=== PATIENT | male | born 1985 | race Caucasian/White ===

== ENCOUNTER 2019-07-11 15:43 | Inpatient (IN) ==
[2019-07-11] MEDS ORDERED: ROBAXIN PO PRN (17:26)
[2019-07-11] MEDS ORDERED: DULCOLAX PR PRN (17:26)
[2019-07-11] MEDS ORDERED: IMODIUM PO PRN (17:26)
[2019-07-11] MEDS ORDERED: MOTRIN PO PRN (17:26)
[2019-07-11] MEDS ORDERED: BENTYL PO PRN (17:26)
[2019-07-11] MEDS ORDERED: D5W 1,000 ML IV PRN (17:26)
[2019-07-11] MEDS ORDERED: LIBRIUM PO PRN (17:26)
[2019-07-11] MEDS ORDERED: PHENOBARBITAL IV PRN (17:26)
[2019-07-11] MEDS ORDERED: SINEMET 25/100 PO PRN (17:26)
[2019-07-11] MEDS ORDERED: MAALOX PLUS LIQUID PO PRN (17:26)
[2019-07-11] MEDS ORDERED: TUBERSOL ID ONE (17:26)
[2019-07-11] MEDS ORDERED: ZOFRAN ODT PO PRN (17:26)
[2019-07-11] MEDS ORDERED: ATARAX PO PRN (17:26)
[2019-07-11] MEDS ORDERED: SENOKOT PO PRN (17:26)
[2019-07-11] MEDS ORDERED: NICODERM PATCH TD PRN (17:26)
[2019-07-11] MEDS ORDERED: TYLENOL PO PRN (17:26)
[2019-07-11] MEDS ORDERED: ZOFRAN IV PRN (17:26)
[2019-07-11] MEDS ORDERED: DESYREL PO PRN (17:26)
[2019-07-11] MEDS ORDERED: SEROQUEL PO PRN (17:26)
[2019-07-11 18:10] LABS: HEMATOCRIT 39.7 % (42.0-52.0); HEMOGLOBIN 13.4 g/dL (14.0-18.0); MCH 28.3 PG (27-31); MCHC 33.8 g/dL (33-37); MCV 83.9 FL (81-99); MPV 9.4 FL (7.4-10.4); RBC 4.73 XMIL (4.7-6.1); WBC 7.98 X1000 (4.8-10.8)
[2019-07-11 18:22] LABS: URINE SOURCE CLEAN CATCH
[2019-07-11 18:24] LABS: INR 0.95; PROTIME 13.2 Seconds (11.0-16.0)
[2019-07-11] MEDS: LIBRIUM PO SCH (18:38)
[2019-07-11 18:39] LABS: UR AMPHETAMINES QUAL PRESUMPTIVE POSITIVE (NONE DETECT); UR BARBITUATES QUAL NONE DETECTED (NONE DETECT); UR BENZODIAZEPIN QUAL PRESUMPTIVE POSITIVE (NONE DETECT); UR CANNABINOIDS QUAL NONE DETECTED (NONE DETECT); UR COCAINE QUAL NONE DETECTED (NONE DETECT); UR METHADONE QUAL NONE DETECTED (NONE DETECT); UR METHAMPHETAMINE QUAL PRESUMPTIVE POSITIVE (NONE DETECT); UR OPIATES QUAL PRESUMPTIVE POSITIVE (NONE DETECT); UR OXYCODONE QUAL NONE DETECTED (NONE DETECT); UR PCP QUAL NONE DETECTED (NONE DETECT); UR PROPOXYPHENE QUAL NONE DETECTED (NONE DETECT); UR TCA QUAL NONE DETECTED (NONE DETECT)
[2019-07-11 18:40] LABS: BILIRUBIN URINE NEGATIVE (NEGATIVE); BLOOD URINE NEGATIVE (NEGATIVE); CLARITY SL. CLOUDY (CLEAR); COLOR YELLOW; GLUCOSE URINE NEGATIVE (NEGATIVE); KETONE URINE NEGATIVE (NEGATIVE); LEUKOCYTES URINE TRACE (NEGATIVE); NITRITE URINE NEGATIVE (NEGATIVE); PROTEIN URINE TRACE mg/dL (NEGATIVE); SP GRAVITY URINE 1.015; UROBILINOGEN URINE NORMAL
[2019-07-11 18:44] LABS: URINE BACTERIA 1+ /HFP; URINE CAST NONE SEEN /LPF; URINE CRYSTAL NONE SEEN /HPF; URINE EPITHELIAL CELLS <10 /HPF (<10); URINE WBC <10 /HPF (<10); URINE YEAST NONE SEEN /HPF
[2019-07-11 18:45] LABS: AMYLASE 81 U/L (20-200); LIPASE 24 U/L (13-60)
[2019-07-11 18:47] LABS: AGAP 10; ALBUMIN 4.4 g/dL (3.5-5.0); ALKALINE PHOSPHATASE 72 U/L (32-122); BUN 8 mg/dL (8-22); CALCIUM 8.6 mg/dL (8.8-10.2); CHLORIDE 102 mmol/L (98-107); COSMO 282; CREATININE 0.8 mg/dL (0.7-1.2); ESTIMATED GFR > 60; GLUCOSE 133 mg/dL (70-104); GOT 13 U/L (10-34); GPT 9 U/L (10-44); SODIUM 141 mmol/L (136-145); TCO2 29 mmol/L (25-35); TOTAL PROTEIN 7.4 g/dL (6.3-8.3)
[2019-07-12] MEDS: LIBRIUM PO SCH ×3 (00:10→12:22)
[2019-07-12] MEDS ORDERED: PROTONIX PO SCH (07:00)
[2019-07-12] MEDS ORDERED: VITAMIN B-1 PO SCH (09:00)
[2019-07-12] MEDS ORDERED: FOLIC ACID PO SCH (09:00)
[2019-07-12] MEDS ORDERED: THERA M PLUS PO SCH (09:00)
[2019-07-12 13:41] VITALS: BP 97/58
--- NOTE | 2019-07-13 06:41 | PROGRESS NOTE ---
DATE: 07/12/2019 SUBJECTIVE: Patient notes that he is feeling okay, still having some withdrawal symptoms, but overall is improving. Denies any fevers or chills. PHYSICAL EXAMINATION: Vital Signs: Reviewed, stable. HEENT: Normocephalic. Neck: Supple. Cardiovascular: Regular rate. Chest: Clear. ASSESSMENT: 1. Nausea, vomiting. 2. Abdominal pain. 3. Paresthesias. 4. Opiate abuse withdrawal and stabilization. PLAN: Will continue patient in the hospital. Continue Librium taper and consider Vivitrol injection on discharge. cc: Jeff Mendes MD MTDD
--- NOTE | 2019-07-15 02:22 | DISCHARGE SUMMARY ---
ADMISSION DATE: 07/11/2019 DISCHARGE DATE: 07/12/2019 DISCHARGE DIAGNOSES: 1. Patient left against medical advice. 2. Nausea, vomiting. 3. Abdominal pain. 4. Myalgias. 5. Paresthesias. 6. Sweating. 7. Opiate abuse, withdrawal, and stabilization. CONSULTATIONS: None. PROCEDURES: None. BRIEF HOSPITAL COURSE: Patient is a 33-year-old male who presented to [facility] program secondary to nausea, vomiting, abdominal pain, paresthesias. He states he has been abusing opiates. Notes that he has been on Suboxone for quite some time. Unfortunately, he was not getting it from a clinic. Apparently, his at the time, was going to a Suboxone clinic and they were simply sharing his prescription. The patient on admission noted that he was having nausea, vomiting, tremors, myalgias, sweating, was unable to keep anything down. He states that he wants off everything. We admitted him to the hospital, placed him on Librium taper, which he appeared to be tolerating very well. In fact, on the day that he left AMA, that morning he had no complaints, states he was feeling okay. Noted that his symptoms had improved. DISPOSITION: No discharge planning or disposition was able to be performed, as patient left AMA without the staff actually knowing it until he was seen in the parking lot. When asked, the patient states he was not going to allow the nurses to commit him, and that he was not staying in the hospital any longer. cc: Jeff Mendes MD
--- NOTE | 2019-07-19 22:06 | HISTORY AND PHYSICAL ---
CHIEF COMPLAINT: Nausea and vomiting. HISTORY OF PRESENT ILLNESS: The patient is a 33-year-old male who presented to [facility] secondary to nausea, vomiting, abdominal pain, myalgias, paresthesias, and paroxysmal sweating. The patient notes that he has been using and abusing opiates. He has been trying to stop but has not been able. SOCIAL HISTORY: Patient is single. He is unemployed. Lives at home in [place]. PAST MEDICAL HISTORY: Significant for hepatitis C which is currently not treated. He has been having high-risk behaviors due to his opiate use as well as his current lifestyle choices. Notes he has been having issues with compulsive gambling, compulsive sex and pornography, and depression/anxiety. Past medical history is also significant for history of blackouts that are drug-related. Has a history of borderline personality disorder and PTSD. MEDICATIONS: None. ALLERGIES: No known drug allergies. REVIEW OF SYSTEMS: CINA score is elevated secondary to nausea, vomiting, abdominal pain, frequent inability to sit still. He is fidgety, moving about. Denies any headaches, blurred vision, changes in vision. Denies any focalized numbness, tingling, or weakness in his extremities. Denies dysuria, frequency, urgency, hesitancy. SUBSTANCE ABUSE HISTORY: The patient notes that he has not been in a treatment facility in the past. He does note that he has been on Suboxone in the past, but he was using half of his 's prescription until their divorce. Started drinking at 14, currently drinks a couple times a month. Started marijuana at 15. Does not use it currently. Started Xanax at 20 and takes it recreationally when he has access. Started stimulants at 20, currently using IV daily. Started cocaine at 17, currently using recreationally. Tried hallucinogens as a teenager. Has been using inhalants during sexual acts for fun. Started opiates at 21. Has been recently using IV heroin a couple times a day. Started smoking at 13. Currently smokes from a half to 1-1/2 packs a day. FAMILY HISTORY: Noncontributory. PHYSICAL EXAMINATION: VITAL SIGNS: Reviewed. GENERAL: He is awake, alert. He is in no respiratory distress. HEENT: Normocephalic. NECK: Supple. CARDIOVASCULAR: Regular rate. CHEST: Clear. ABDOMEN: Soft. EXTREMITIES: Moves all extremities. NEUROLOGIC: No changes. ASSESSMENT: 1. Nausea, vomiting. 2. Abdominal pain. 3. Myalgias. 4. Paresthesias. 5. Paroxysmal sweating. 6. Polysubstance use and abuse. 7. Chronic anxiety, depression. PLAN: We will continue patient in the hospital, place him on high-dose Librium taper. We will continue to follow. Will attempt counseling. Further orders as needed. cc: Jeff Mendes MD
== END 2019-07-12 16:15 | disposition left against medical advice (07) | DRG 894 ==
LOC: P.MEDSURG 15:43
PROVIDERS: ADMIT Family Medicine; ATTEND Family Medicine